=== PATIENT | female | born 1975 | race Caucasian/White ===

== ENCOUNTER → 2016-09-20 | Outpatient (CLI) | payer BC ==
--- NOTE | 2016-09-23 10:59 | MM ---
Reason for exam: screening (asymptomatic). Last mammogram was performed 1 year ago. History: Family history of breast cancer in mother at age 50 and breast cancer in paternal cousin at age 30. Took hormonal contraceptives for 10 years. Physical Findings: A clinical breast exam by your physician is recommended on an annual basis and results should be correlated with mammographic findings. MG 3D Screening Mammo W/Cad Bilateral CC and MLO view(s) were taken. Prior study comparison: September 13, 2015, bilateral MG 3d screening mammo w/cad. May 20, 2014, right breast MG work up mamm w CAD RT. May 16, 2014, bilateral MG screening mammo w CAD. The breast tissue is heterogeneously dense. This may lower the sensitivity of mammography. There is no discrete abnormality. ASSESSMENT: Incomplete: need additional imaging evaluation, BI-RAD 0 RECOMMENDATION: Ultrasound of the left breast. (palpable by patient, dense tissue) [facility] will attempt to contact patient to return for ultrasound.
== END | disposition home or self-care (01) ==
LOC: RADMAMWWP 14:33
PROVIDERS: ATTEND Obstetrics & Gynecology
DX: Z12.31 Encounter for screening mammogram for malignant neoplasm of breast (principal)
CPT/HCPCS: 77063; G0202

== ENCOUNTER → 2016-10-02 | Outpatient (CLI) | payer BC ==
--- NOTE | 2016-10-02 08:55 | USB ---
Reason for exam: additional evaluation requested from abnormal screening. History: Family history of breast cancer in mother at age 50 and breast cancer in paternal cousin at age 30. Took hormonal contraceptives for 10 years. Physical Findings: Nurse did not find any significant physical abnormalities on exam. US Breast Workup LT Left breast ultrasound includes all four quadrants, the retroareolar region and axilla. Finding demonstrates no cystic or solid lesion seen. Dense breast tissue. These results were verbally communicated with the patient and result sheet given to the patient on 10/02/16. ASSESSMENT: Negative, BI-RAD 1 RECOMMENDATION: Return to routine screening mammogram schedule for both breasts.
== END | disposition home or self-care (01) ==
LOC: RADUSWWP 07:46
PROVIDERS: ATTEND Obstetrics & Gynecology
DX: R92.8 Other abnormal and inconclusive findings on diagnostic imaging of breast (principal)

== ENCOUNTER → 2017-01-02 | Outpatient (CLI) | payer BC ==
--- NOTE | 2017-01-02 16:17 | CT ---
EXAMINATION TYPE: CT chest abdomen w con DATE OF EXAM: 01/02/2017 COMPARISON: NONE HISTORY: Abdominal pain and systemic sclerosis CT DLP: 986 mGycm. Automated Exposure Control for Dose Reduction was Utilized. CONTRAST: Oral contrast per protocol. CT scan of the thorax and abdomen is performed with IV Contrast, patient injected with 100 mL of Omni paque 300. FINDINGS: LUNGS: Right upper lobe ground glass opacity measures 4 mm on series 4 image 32. No evidence of honey combing, interseptal lobular thickening, or peripheral basilar groundglass opacities to indicate pulm onary fibrosis or interstitial lung disease in this patient with a history of systemic sclerosis. MEDIASTINUM: There are no greater than 1 cm hilar or mediastinal lymph nodes. No pericardial effusi on is seen. OTHER: No esophageal dilation, sometimes associated with systemic sclerosis. LIVER/GB: Minimal intrahepatic biliary ductal dilatation is appreciated predominating in the inferior hepatic segments. There is a tortuous course of the common bile duct measuring up to 5 mm, nonenlarg ed. PANCREAS: Pancreas is enlarged most prominent on the coronal images, however there is no abnormal enh ancement or peripancreatic fat stranding. No ductal dilation. SPLEEN: No significant abnormality is seen. ADRENALS: No significant abnormality is seen. KIDNEYS: Punctate 1 mm nonobstructing left renal calculus is noted. No evidence of hydronephrosis wit hin either kidney. BOWEL: No bowel wall thickening or bowel dilation. Incidental note is made of a duodenal diverticulum projecting in the uncinate process of the pancreas. LYMPH NODES: No greater than 1cm abdominal lymph nodes are appreciated. OSSEOUS STRUCTURES: No significant abnormality is seen. OTHER: Diastases recti is present with a small fat filled umbilical hernia with a 5.5 mm neck and sin gle calcification. IMPRESSION: 1. Pancreas appears diffusely enlarged without discrete peripancreatic fat stranding. This may simply relate to the patient's anatomy or could relate to early pancreatitis. Correlate with serum amylase and lipase. 2. No evidence of metastatic esophagus, interstitial pulmonary fibrosis, interstitial lung disease, s mall bowel wall thickening, or obstruction. Findings again be seen in systemic sclerosis. 3. Solitary groundglass pulmonary nodule measuring 4 mm. Follow-up is recommended in 3 months as this may represent atelectasis, inflammatory or infectious nodule, or much less likely early neoplastic e tiology. 4. Punctate 1 mm nonobstructing left renal calculus.
== END | disposition home or self-care (01) ==
LOC: RADCTMAIN 13:43
PROVIDERS: ATTEND Internal Medicine Rheumatology
DX: N20.0 Calculus of kidney (principal); M34.9 Systemic sclerosis, unspecified; K86.89 Other specified diseases of pancreas; R91.1 Solitary pulmonary nodule
CPT/HCPCS: 71260; 74160; Q9967

== ENCOUNTER → 2017-01-07 | Outpatient (CLI) | payer BC ==
--- NOTE | 2017-01-07 09:46 | ECHOF ---
Referral Reason:M34.9 sysctemic sclerosis MEASUREMENTS -------- HEIGHT: 134.6 cm WEIGHT: 53.5 kg BP: RVIDd: 2.3 cm (< 3.3) IVSd: 0.8 cm (0.6 - 1.1) LVIDd: 4.1 cm (3.9 - 5.3) LVPWd: 0.7 cm (0.6 - 1.1) IVSs: 1.0 cm LVIDs: 2.7 cm LVPWs: 0.9 cm LA Diam: 2.2 cm (2.7 - 3.8) LAESV Index (A-L): 19.16 ml/m Ao Diam: 2.9 cm (2.0 - 3.7) AV Cusp: 1.8 cm (1.5 - 2.6) LA Diam: 2.7 cm (2.7 - 3.8) MV EXCURSION: 13.015 mm (> 18.000) MV EF SLOPE: 76 mm/s (70 - 150) EPSS: 1.0 cm MV E Gamaliel: 0.71 m/s MV DecT: 142 ms MV A Gamaliel: 0.59 m/s MV E/A Ratio: 1.21 RAP: 5.00 mmHg RVSP: 19.91 mmHg FINDINGS -------- Sinus rhythm. This was a technically good study. LV size, wall thickness and systolic function are normal, with an EF greater than 55%. The left ventricular size is normal. The right ventricle is normal in size. Normal LA size by volume 22+/-6 ml/m2. The right atrial size is normal. The aortic valve is trileaflet, and appears structurally normal. No aortic stenosis or regurgitation. Mild mitral regurgitation is present. Mild tricuspid regurgitation present. There is no evidence of pulmonary hypertension. The right ventricular systolic pressure, as measured by Doppler, is 19.91mmHg. There is no pulmonic regurgitation present. The aortic root size is normal. There is no pericardial effusion. CONCLUSIONS -------- 1. LV size, wall thickness and systolic function are normal, with an EF greater than 55%. 2. The aortic root size is normal. 3. There is no pericardial effusion. 4. The left ventricular size is normal. 5. Normal LA size by volume 22+/-6 ml/m2. 6. The aortic valve is trileaflet, and appears structurally normal. No aortic stenosis or regurgitation. 7. Mild mitral regurgitation is present. 8. Mild tricuspid regurgitation present. 9. There is no evidence of pulmonary hypertension. 10. The right ventricular systolic pressure, as measured by Doppler, is 19.91mmHg. 11. There is no pulmonic regurgitation present. CUT OFF SAWYER: Medina Spangler RDCS
== END | disposition home or self-care (01) ==
LOC: RADECHMAIN 08:32
PROVIDERS: ATTEND Internal Medicine Rheumatology
DX: I08.1 Rheumatic disorders of both mitral and tricuspid valves (principal); M34.9 Systemic sclerosis, unspecified
CPT/HCPCS: 93306; 94060; 94726; 94729

== ENCOUNTER → 2017-04-09 | Outpatient (CLI) | payer BC ==
--- NOTE | 2017-04-09 13:55 | CT ---
EXAMINATION TYPE: CT chest wo con DATE OF EXAM: 04/09/2017 COMPARISON: 01/02/2017 HISTORY: Solitary lung nodule CT DLP: 118.2 mGycm, Automated exposure control for dose reduction was used. CONTRAST: Performed injected with 0 mL of Omnipaque 300. TECHNIQUE: Axial images were obtained at 5 mm thick sections. Reconstructed images are reviewed on [employer] computer in the coronal plane. FINDINGS: Minimal inferior portion of the thyroid visualized is normal. No suspicious lung nodules or focal infiltrates are present.. Right middle lobe nodular density is no t identified on the current examination. No enlarged mediastinal or hilar adenopathy is evident. The ascending aorta diameter at the level o f the main pulmonary artery is 3.0 cm. The main pulmonary artery diameter at the bifurcation is 2.[address] sections are obtained through the upper abdomen. There is a 0.[address] one at the inferior pole left kidney. Some mild right hydronephrosis may be present. IMPRESSIONS: 1. CT of the chest appears within normal limits. 2. Minimal right hydronephrosis of uncertain etiology.
== END | disposition home or self-care (01) ==
LOC: RADCTMAIN 13:06
PROVIDERS: ATTEND Family Medicine
DX: R91.1 Solitary pulmonary nodule (principal)
CPT/HCPCS: 71250

== ENCOUNTER → 2017-07-22 | Outpatient (CLI) | payer BC ==
--- NOTE | 2017-07-22 08:57 | CT ---
EXAMINATION TYPE: CT chest wo con DATE OF EXAM: 07/22/2017 COMPARISON: 04/09/2017 and 2016 HISTORY: Patient has no complaints at time of service. Follow up study for known pulmonary nodule. CT DLP: 432 mGycm. Automated Exposure Control for Dose Reduction was Utilized. TECHNIQUE: CT scan of the thorax is performed without IV contrast. FINDINGS: LUNGS: The lungs are grossly clear, there is no concerning parenchymal mass or nodule identified. T here is no pleural effusion or pneumothorax seen. The tracheobronchial tree is patent. MEDIASTINUM: Lack of IV contrast is noted to limit evaluation for mediastinal and especially hilar ad enopathy. There are no definitive greater than 1 cm hilar or mediastinal lymph nodes. No cardiomega ly or pericardial effusion is seen. OTHER: No additional significant abnormality is seen. IMPRESSION: The previously seen groundglass 4 mm right upper lobe density/nodule has resolved in the interim and may have been of infectious or inflammatory etiology or related to atelectasis. No pulmon shazia nodules are identified on today's examination or the prior of 04/09/2017. No further follow-up is n ecessary.
== END | disposition home or self-care (01) ==
LOC: RADCTMAIN 08:31
PROVIDERS: ATTEND Family Medicine
DX: R91.1 Solitary pulmonary nodule (principal)
CPT/HCPCS: 71250

== ENCOUNTER → 2017-10-21 | Outpatient (CLI) | payer BC ==
--- NOTE | 2017-10-22 12:39 | MM ---
Reason for exam: screening (asymptomatic). Last mammogram was performed 1 year and 1 month ago. History: Family history of breast cancer in mother at age 50 and breast cancer in paternal cousin at age 30. Took hormonal contraceptives for 10 years. Physical Findings: A clinical breast exam by your physician is recommended on an annual basis and results should be correlated with mammographic findings. MG 3D Screening Mammo W/Cad Bilateral CC and MLO view(s) were taken. Prior study comparison: September 20, 2016, bilateral MG 3d screening mammo w/cad. September 13, 2015, bilateral MG 3d screening mammo w/cad. The breast tissue is extremely dense which could obscure a lesion on mammography. There is chronic nodularity bilaterally. There is no dominant lesion. No significant changes when compared with prior studies. ASSESSMENT: Benign, BI-RAD 2 RECOMMENDATION: Routine screening mammogram of both breasts in 1 year.
== END | disposition home or self-care (01) ==
LOC: RADMAMWWP 13:04
PROVIDERS: ATTEND Obstetrics & Gynecology
DX: Z12.31 Encounter for screening mammogram for malignant neoplasm of breast (principal)
CPT/HCPCS: 77063; 77067

== ENCOUNTER → 2019-01-05 | Outpatient (CLI) | payer BC ==
--- NOTE | 2019-01-06 11:35 | MM ---
Reason for exam: screening (asymptomatic). Last mammogram was performed 1 year and 2 months ago. History: Family history of breast cancer in mother at age 50 and breast cancer in paternal cousin at age 30. Took hormonal contraceptives for 18 years. Physical Findings: A clinical breast exam by your physician is recommended on an annual basis and results should be correlated with mammographic findings. MG 3D Screening Mammo W/Cad Bilateral CC, MLO, and XCCL view(s) were taken. Prior study comparison: October 21, 2017, bilateral MG 3d screening mammo w/cad. September 20, 2016, bilateral MG 3d screening mammo w/cad. The breast tissue is heterogeneously dense. This may lower the sensitivity of mammography. There is no discrete abnormality. ASSESSMENT: Negative, BI-RAD 1 RECOMMENDATION: Routine screening mammogram of both breasts in 1 year.
== END | disposition home or self-care (01) ==
LOC: RADMAMWWP 09:12
PROVIDERS: ATTEND Obstetrics & Gynecology
DX: Z12.31 Encounter for screening mammogram for malignant neoplasm of breast (principal)
CPT/HCPCS: 77063; 77067

== ENCOUNTER → 2019-11-19 | Outpatient (CLI) | payer BC ==
--- NOTE | 2019-11-19 10:30 | MR ---
EXAMINATION TYPE: MR brain/cspine wo/w DATE OF EXAM: 11/19/2019 COMPARISON: 09/30/2018, 10/30/2007 HISTORY: Yearly f/u, Dizziness, Headaches, Rt side weakness, MS TECHNIQUE: Multiplanar, multisequence images of the brain and brainstem is performed without and with IV contras t, utilizing 6 mL intravenous Gadavist . FINDINGS: Diffusion weighted images demonstrate no evidence of a recent infarct or other diffusion ab normality. Ventricular system is midline. Midline structures demonstrate normal morphology. The cran iocervical junction appears within normal limits. Post contrast images demonstrate no abnormal enhan cement. The dural venous sinuses appear patent. The visualized sinuses are clear and the globes are i ntact. WHITE MATTER: There are approximately 8 areas of abnormal signal. Largest measures approximately 1 mm No enhancing lesions. No callosal lesions IMPRESSION: 1. Stable minimal nonspecific white matter changes can be seen with hypertension, migraine headaches, demyelinating disease or remote microvascular ischemia. 2. No new lesions or enhancing EXAMINATION TYPE: MR brain/cspine wo/w DATE OF EXAM: 11/19/2019 COMPARISON: NONE HISTORY: Yearly f/u, Dizziness, Headaches, Rt side weakness, MS TECHNIQUE: T1 sagittal and coronal, T2 sagittal, and gradient echo axial views of the cervical spine are submitted. FINDINGS: The cranial cervical junction is preserved. There is no abnormal signal seen within the sp inal cord or paraspinal soft tissues. At C2-3 there is no disc herniation or canal stenosis. No foraminal encroachment. At C3-4 there is no disc herniation or canal stenosis. No foraminal encroachment. At C4-5 there is stable left paracentral disc bulging with mild effacement of thecal sac. Neural fora morris remain patent. No Canal stenosis mild disc desiccation. At C5-6 there is mild degenerative disc disease with broad-based central disc bulging but no canal st enosis or focal herniation. Neural foramina remain patent. Vertebral body hemangioma C6. Mild uncover tebral joint hypertrophy. At C6-7 there is no disc herniation or canal stenosis. No foraminal encroachment. At C7-T1 there is no disc herniation or canal stenosis. No foraminal encroachment. IMPRESSION: 1. Stable disc bulging and mild degenerative disc disease C4-5 and C5-C6. No canal stenosis or jarad inal encroachment.
== END | disposition home or self-care (01) ==
LOC: RADMRIMAIN 08:47
PROVIDERS: ATTEND Psychiatry & Neurology Neurology
DX: M50.321 Other cervical disc degeneration at C4-C5 level (principal); M50.221 Other cervical disc displacement at C4-C5 level; G35 Multiple sclerosis
CPT/HCPCS: 70553; 72156; A9585

== ENCOUNTER → 2020-02-15 | Outpatient (CLI) | payer BC ==
--- NOTE | 2020-02-17 10:36 | MM ---
Reason for exam: screening (asymptomatic). Last mammogram was performed 1 year and 1 month ago. History: Family history of breast cancer in mother at age 50 and breast cancer in paternal cousin at age 30. Took hormonal contraceptives for 18 years. Physical Findings: A clinical breast exam by your physician is recommended on an annual basis and results should be correlated with mammographic findings. MG 3D Screening Mammo W/Cad Bilateral CC and MLO view(s) were taken. Prior study comparison: January 05, 2019, bilateral MG 3d screening mammo w/cad. October 21, 2017, bilateral MG 3d screening mammo w/cad. The breast tissue is heterogeneously dense. This may lower the sensitivity of mammography. There is no discrete abnormality. ASSESSMENT: Negative, BI-RAD 1 RECOMMENDATION: Routine screening mammogram of both breasts in 1 year.
== END | disposition home or self-care (01) ==
LOC: RADMAMWWP 16:03
PROVIDERS: ATTEND Obstetrics & Gynecology
DX: Z12.31 Encounter for screening mammogram for malignant neoplasm of breast (principal); Z80.3 Family history of malignant neoplasm of breast
CPT/HCPCS: 77063; 77067

== ENCOUNTER → 2020-02-29 | Day surgery (SDC) | payer BC, OTHER ==
[2020-02-24 14:05] VITALS: BMI 23.0
[~2020-02-29] MED LIST: LACTATED RINGERS 1,000 ML IV SCH; LIDOCAINE 1% (10MG/ML) FOR IV START INTRADERMA PRN; LIDOCAINE 1% INJ 10MG/ML (20 ML MDV) ONE; PROPOFOL 10 MG/ML 20 ML VIAL IV ONE
[2020-02-29 07:19] VITALS: TEMP 97.8
--- NOTE | 2020-02-29 08:02 | P.PCN ---
Date of Procedure: 02/29/20 Description of Procedure: BRIEF HISTORY: Patient is a 44-year-old female presenting for outpatient esophagogastroduodenoscopy for evaluation of GERD. The patient currently on omeprazole therapy. She reports that symptoms of reflux fairly well controlled. She does report dysphagia predominantly to soft foods, she feels this may be related to saliva production . She does report a history ofPROCEDURE PERFORMED: Esophagogastroduodenoscopy with biopsy. PREOPERATIVE DIAGNOSIS: GERD, esophageal dysphagia. ESTIMATED BLOOD LOSS: Minimal. IV sedation per anesthesia. PROCEDURE: After informed consent was obtained, the patient was brought into the endoscopy unit. IV sedation was administered by Anesthesia under continuous monitoring. Initially the Olympus GIF-190 video endoscope was inserted into the mouth. Esophagus intubated without any difficulty. It was gradually advanced into the stomach and duodenum and carefully examined. The bulb and the second part of the duodenum appeared normal, with biopsies taken. The scope at this time was withdrawn to the stomach, adequately insufflated with air, and upon careful examination, mucosa of the antrum, body, cardia and the fundus appeared normal, except for some mild punctate erythema suggestive of mild gastritis with biopsies taken. The scope was then withdrawn into the esophagus. The GE junction was located at 36 cm from the incisors and biopsied. The esophagus appeared normal, with biopsies taken of the midesophagus. There were no erosions or ulcerations seen and the patient tolerated the procedure well. IMPRESSION: 1. Mild gastritis. 2. Biopsies of the GE junction, antrum and body, duodenum and midesophagus. RECOMMENDATIONS: The findings of this examination were discussed with the patient. Okay to resume diet. Okay to resume medications. Await pathology from biopsies. Continue current medical management.
[2020-02-29 08:04] VITALS: PULSE 79
[2020-02-29 08:34] VITALS: BP 100/70; RESP 16
== END ==
LOC: ORWHC2ENDO 06:41
PROVIDERS: ATTEND Internal Medicine
DX: K29.50 Unspecified chronic gastritis without bleeding (principal); K21.9 Gastro-esophageal reflux disease without esophagitis; Z88.0 Allergy status to penicillin; Z79.3 Long term (current) use of hormonal contraceptives; Z79.899 Other long term (current) drug therapy; Z98.51 Tubal ligation status
CPT/HCPCS: 81025; 88305; 43239; J2001; J2704

== ENCOUNTER → 2020-08-11 | Outpatient (CLI) | payer BC, OTHER ==
--- NOTE | 2020-08-11 09:47 | US ---
EXAMINATION TYPE: US thyroid st tissue head/neck DATE OF EXAM: 08/11/2020 COMPARISON: US 2015 CLINICAL HISTORY: E04.1 SINGLE THYROID NODULE. GLAND SIZE: Right Lobe: 4.1 x 1.5 x 1.1 cm Overall Parenchyma: homogenous Left Lobe: 3.7 x 1.0 x 1.2 cm Overall Parenchyma: homogeneous Isthmus Thickness: 0.3 cm NODULES RIGHT: # of nodules measured on right: 1 1. 0.6 X 0.3 x 0.5 cm, mid mid, solid or almost completely solid, hypoechoic nodule, which is wider than tall, with smooth margins, without echogenic foci. Prior size: 0.5 x 0.5 x 0.4 cm LEFT: # of nodules measured on left: 0 ISTHMUS: # of nodules measured in the isthmus: 0 Bilateral neck scanned, no evidence of lymphadenopathy. There are bilateral subcentimeter cystic areas. Persistent small bilateral thyroid nodules and stable 5 mm solid nodule right thyroid lobe midpole level IMPRESSION: As above. No new or enlarging solid nodules noted.
== END | disposition home or self-care (01) ==
LOC: RADUSWWP 09:17
PROVIDERS: ATTEND Family Medicine
DX: E04.2 Nontoxic multinodular goiter (principal)
CPT/HCPCS: 76536

== ENCOUNTER → 2020-11-28 | Outpatient (CLI) | payer BC, OTHER ==
--- NOTE | 2020-11-28 12:45 | CT ---
EXAMINATION TYPE: CT soft tissue neck w con DATE OF EXAM: 11/28/2020 COMPARISON: None HISTORY: sore throat, difficulty swallowing CT DLP: 340 mGycm CONTRAST: CT scan of the neck is performed with IV Contrast, patient injected with 100 mL of Isovue 370. Contrast enhanced CT of the neck was performed from the skull base through the lung apices. AIRWAY: The supraglottic, glottic, and subglottic portions of the airway appear patent and free of mass. SALIVARY GLANDS: The submandibular and parotid glands are free of mass or inflammatory process. THYROID GLAND: No nodules or masses seen. LYMPH NODES: No adenopathy seen greater than 1cm. LUNG APICES: No nodule or mass is seen. OTHER: Vascular structures are patent. No significant degenerative change of the cervical spine. N o abscess seen. IMPRESSION: No distinct abnormality seen.
== END | disposition home or self-care (01) ==
LOC: RADCTMAIN 11:58
PROVIDERS: ATTEND Family Medicine
DX: E04.1 Nontoxic single thyroid nodule (principal)
CPT/HCPCS: 70491; Q9967

== ENCOUNTER → 2021-01-22 | Outpatient (CLI) | payer BC, OTHER ==
--- NOTE | 2021-01-23 04:27 | MR ---
EXAMINATION TYPE: MR brain/cspine wo/w DATE OF EXAM: 01/22/2021 COMPARISON: 11/19/2019 HISTORY: MS CONTRAST: Standard multiplanar, multisequence MRI departmental protocol utilizing 6 mL intravenous Gadavist josh olinium contrast. Multiplanar multiecho imaging of the brain and cervical spine without and with IV contrast. FINDINGS: Ventricles have fairly normal size. There is no mass effect nor midline shift. There is no evidence o f intracranial hemorrhage. On the T2 and FLAIR images there are scattered white matter high signal foci in both cerebral hemisph eres. No involvement of the cerebellum. Total number of lesions is approximately 10 and the largest i s measuring 5 mm in the left posterior frontal lobe and 5 mm in the right frontal lobe white matter. Most of the lesions are less than 3 mm. No significant temporal lobe involvement. Corpus callosum is intact. Sella turcica appears normal. There is no evidence of orbital mass. There is no significant pathologic enhancement. There is normal enhancement of the venous sinuses. Cervical vertebra have normal alignment. Disc spaces are fairly normal. There is minimal posterior di sc bulging at C4-5 and C5-6. There is no spinal stenosis. There is developmentally adequate spinal ca nal. Cervical spinal cord has fairly normal signal pattern. There is no edema. No sign of cervical de myelinating disease. There is no pathologic enhancement of the cervical spinal cord. IMPRESSION: Negative MR scan of the cervical spine. No evidence of demyelinating disease. Mild posterior disc bul ging at C4-5 and C5-6. No change. Scattered white matter high signal foci as above that are predominantly in the frontal and anterior p arietal lobes which could relate to demyelinating disease. Also consider microvascular ischemia. I do not see an adverse change compared to Old exam one year ago.
== END | disposition home or self-care (01) ==
LOC: RADMRIMAIN 14:01
PROVIDERS: ATTEND Psychiatry & Neurology Neurology
DX: G35 Multiple sclerosis (principal); M50.222 Other cervical disc displacement at C5-C6 level
CPT/HCPCS: 70553; 72156; A9585

== ENCOUNTER → 2021-01-29 | Outpatient (CLI) | payer BC, OTHER ==
--- NOTE | 2021-01-30 04:50 | MR ---
EXAMINATION TYPE: MR thoracic spine wo/w con DATE OF EXAM: 01/29/2021 COMPARISON: NONE HISTORY: 45-year-old female Bilateral leg weakness, numbness. History MS. Technique: Multiplanar, multisequence images of the thoracic spine were obtained before and after adm inistration of 6 mL intravenous Gadavist gadolinium contrast. Additional demyelinating disease seque nce with sagittal PD sequence. FINDINGS: Vertebral body heights are preserved and alignment is maintained. Very mild intervertebral disc desiccation cervicothoracic junction and upper cervical spine. No focal disc herniation or significant spinal canal stenosis. Normal course, caliber, signal intensity of the thoracic spinal cord. No abnormal enhancement within the spinal canal. Towards the left within the T11 vertebral body, a fatty matrix hemangioma is noted. No suspicious bone marrow replacement. Mild facet arthropathy upper thoracic spine. No significant bony neural foraminal narrowing identified. Conus medullaris is normal. IMPRESSION: 1. Very mild early degenerative disc desiccation and mild facet arthropathy in the upper thoracic spi ne. No focal disc herniation or significant spinal canal stenosis. No significant neuroforaminal sten osis. 2. No evidence for demyelinating disease within the thoracic spinal cord.
== END | disposition home or self-care (01) ==
LOC: RADMRIMAIN 14:47
PROVIDERS: ATTEND Psychiatry & Neurology Neurology
DX: M47.814 Spondylosis without myelopathy or radiculopathy, thoracic region (principal)
CPT/HCPCS: 72157; A9585

== ENCOUNTER → 2021-03-15 | Outpatient (CLI) | payer BC, OTHER ==
--- NOTE | 2021-03-19 10:39 | MM ---
Reason for exam: screening (asymptomatic). Last mammogram was performed 1 year and 1 month ago. History: Family history of breast cancer in mother at age 50 and breast cancer in paternal cousin at age 30. Took hormonal contraceptives for 18 years. Physical Findings: A clinical breast exam by your physician is recommended on an annual basis and results should be correlated with mammographic findings. MG 3D Screening Mammo W/Cad Bilateral CC and MLO view(s) were taken. Prior study comparison: February 15, 2020, bilateral MG 3d screening mammo w/cad. January 05, 2019, bilateral MG 3d screening mammo w/cad. The breast tissue is heterogeneously dense. This may lower the sensitivity of mammography. No significant changes when compared with prior studies. ASSESSMENT: Benign, BI-RAD 2 RECOMMENDATION: Routine screening mammogram of both breasts in 1 year.
== END | disposition home or self-care (01) ==
LOC: RADMAMWWP 12:49
PROVIDERS: ATTEND Obstetrics & Gynecology
DX: Z12.31 Encounter for screening mammogram for malignant neoplasm of breast (principal); Z80.3 Family history of malignant neoplasm of breast
CPT/HCPCS: 77063; 77067

== ENCOUNTER → 2021-09-07 | Outpatient (CLI) | payer BC, OTHER ==
--- NOTE | 2021-09-07 14:16 | US ---
EXAMINATION TYPE: US pelvis complete transvag DATE OF EXAM: 09/07/2021 COMPARISON: NONE CLINICAL HISTORY: R102 PELVIC AND PERINEAL PAIN. Irregular menses. TECHNIQUE: Transvaginal (TV) and Transabdominal (TA) . Transabdominal sonographic images of the pel vis were acquired. Transvaginal sonographic images were medically necessary to better assess the fol lowing anatomy: ovaries, endometrium Date of LMP: 09/04/2021, EXAM MEASUREMENTS: Uterus: 7.4 x 4.6 x 3.0 cm Endometrial Stripe: 0.3 cm 1. Uterus: Anteverted Heterogenous, peripheral vascuarity 2. Endometrium: wnl 3. Right Ovary: Obscured by overlying bowel gas 4. Left Ovary: Obscured by overlying bowel gas 5. Bilateral Adnexa: Prominent vessels in left adnexa 6. Posterior cul-de-sac: no free fluid IMPRESSION: 1. Unremarkable pelvic ultrasound.
--- NOTE | 2021-09-07 14:16 | US ---
EXAMINATION TYPE: US abdomen complete DATE OF EXAM: 09/07/2021 COMPARISON: NONE CLINICAL HISTORY: R109 ABD PAIN. Back pain. EXAM MEASUREMENTS: Liver Length: 16.0 cm Gallbladder Wall: 0.2 cm CBD: 0.4 cm Spleen: 9.3 cm Right Kidney: 10.2 x 4.0 x 3.2 cm Left Kidney: 9.5 x 4.9 x 5.2 cm Pancreas: wnl Liver: wnl Gallbladder: wnl Evidence for sonographic Cyr's sign: neg CBD: wnl Spleen: wnl Right Kidney: No hydronephrosis or masses seen Left Kidney: No hydronephrosis or masses seen Upper IVC: wnl Abd Aorta: No AAA visualized IMPRESSION: 1. Normal abdomen ultrasound
== END | disposition home or self-care (01) ==
LOC: RADUSWWP 13:06
PROVIDERS: ATTEND Family Medicine
DX: N92.6 Irregular menstruation, unspecified (principal); R10.9 Unspecified abdominal pain
CPT/HCPCS: 76700; 76830; 76856

== ENCOUNTER → 2022-03-18 | Outpatient (CLI) | payer BC ==
--- NOTE | 2022-03-19 15:18 | MM ---
Reason for Exam: Screening (asymptomatic). Last screening mammogram was performed 12 month(s) ago. Patient History: Menarche at age 10. First Full-Term at age 22. Currently using Hormonal Contraceptives, beginning at age 14 for 18 years. Paternal cousin had breast cancer, age 30. Mother had breast cancer, age 50. Last menstrual period: 02/18/2022 Risk Values: Eve 5 year model risk: 1.8%. NCI Lifetime model risk: 16.7%. Prior Study Comparison: 01/05/2019 Bilateral Screening Mammogram, [facility]. 02/15/2020 Bilateral Screening Mammogram, [facility]. 03/15/2021 Bilateral Screening Mammogram, [facility]. Tissue Density: The breast tissue is heterogeneously dense. This may lower the sensitivity of mammography. Findings: Analyzed By CAD. There is no suspicious new group of microcalcifications or new suspicious mass in either breast. Overall Assessment: Negative, BI-RAD 1 Management: Screening Mammogram of both breasts in 1 year. Some advise bilateral breast ultrasound surveillance in patients with background dense tissue. A clinical breast exam by your physician is recommended on an annual basis and results should be correlated with mammographic findings. Electronically signed and approved by: Israel Kitchen M.D.
== END | disposition home or self-care (01) ==
LOC: RADMAMWWP 14:59
PROVIDERS: ATTEND Obstetrics & Gynecology
DX: Z12.31 Encounter for screening mammogram for malignant neoplasm of breast (principal); Z80.3 Family history of malignant neoplasm of breast
CPT/HCPCS: 77063; 77067

== ENCOUNTER → 2023-03-19 | Outpatient (CLI) | payer BC ==
--- NOTE | 2023-03-20 08:26 | MM ---
Reason for Exam: Screening (asymptomatic). Last screening mammogram was performed 12 month(s) ago. Patient History: Menarche at age 10. First Full-Term at age 22. Perimenopausal. Currently using Hormonal Contraceptives, beginning at age 14 for 18 years. Paternal cousin had breast cancer, age 30. Mother had breast cancer, age 50. Last menstrual period: 01/05/2023 Risk Values: Eve 5 year model risk: 1.8%. NCI Lifetime model risk: 16.4%. Prior Study Comparison: 02/15/2020 Bilateral Screening Mammogram, [facility]. 03/15/2021 Bilateral Screening Mammogram, [facility]. 03/18/2022 Bilateral MG 3D screening mammo w/cad, [facility]. Tissue Density: The breast tissue is heterogeneously dense. This may lower the sensitivity of mammography. Findings: Analyzed By CAD. There is no suspicious group of microcalcifications or new suspicious mass in either breast. Overall Assessment: Benign, BI-RAD 2 Management: Screening Mammogram of both breasts in 1 year. . Patient should continue monthly self-breast exams. A clinical breast exam by your physician is recommended on an annual basis. This exam should not preclude additional follow-up of suspicious palpable abnormalities. Note on Eve scores and lifetime risk: 1. A Eve score greater than 3% is considered moderate risk. If this is the case, consider specialist referral to assess eligibility for a risk reducing agent. 2. If overall lifetime risk for the development of breast cancer is 20% or higher, the patient may qualify for future screening with alternating mammogram and breast MRI. Electronically signed and approved by: Mark Martínez M.D. Radiologis
== END | disposition home or self-care (01) ==
LOC: RADMAMWWP 12:59
PROVIDERS: ATTEND Obstetrics & Gynecology
DX: Z12.31 Encounter for screening mammogram for malignant neoplasm of breast (principal); Z80.3 Family history of malignant neoplasm of breast
CPT/HCPCS: 77063; 77067

== ENCOUNTER → 2023-03-26 | Outpatient (CLI) | payer BC ==
--- NOTE | 2023-03-31 11:29 | MR ---
EXAMINATION TYPE: MR thoracic spine wo/w con DATE OF EXAM: 03/26/2023 COMPARISON: HISTORY: MS, Right leg weakness, Pt has fallen CONTRAST: Performed utilizing 6.5 mL intravenous Gadavist gadolinium contrast. TECHNIQUE: Multiplanar, multiecho imaging on a 3.0 Wendy magnet is performed through the thoracic spi ne. Spinal cord maintains normal signal through its visualized course. No suspicious white matter plaques within the thoracic spinal cord are identified. No abnormal enhancement is evident. Vertebral body alignment is normal. Vertebral body heights are preserved. Disc heights are preserved. Disc hydration levels are preserved. No spinal canal stenosis is evident. IMPRESSION: 1. No suspicious changes to suggest multiple sclerosis plaques within the thoracic spinal cord.
== END | disposition home or self-care (01) ==
LOC: RADMRIMAIN 13:17
PROVIDERS: ATTEND Psychiatry & Neurology Neurology
DX: G35 Multiple sclerosis (principal)
CPT/HCPCS: 72157; A9585

== ENCOUNTER → 2023-04-01 | Outpatient (CLI) | payer BC ==
--- NOTE | 2023-04-01 20:29 | MR ---
EXAMINATION TYPE: MR brain/cspine wo/w DATE OF EXAM: 04/01/2023 9:23 AM CLINICAL INDICATION:Female, 48 years old with history of G35 MS;, MS follow-up, no new symptoms. COMPARISON: 01/22/2021. TECHNIQUE: Multi planar, multi sequence imaging was performed through the brain including: T1, T2, Inversion rec overy, Diffusion weighted imaging, and gradient echo imaging. No gadolinium was given. Multi planar, multi sequence imaging was performed utilizing: T1-weighted, T2-weighted, and turbo inv ersion recovery imaging of the cervical spine. IV Contrast: 6.5 cc Gadavist FINDINGS: No evidence for restricted diffusion or postcontrast enhancement to suggest active demyelin ation. There is scattered white matter changes some of which are new while others are increased in si ze. Given differences in slice selection on prior exam compared to this exam. Example of a increased size lesion is a frontal lobe 5 mm lesion ultimately 3 mm in prior series 1601 image 105. No lesion i n the a more inferior aspect measuring 6 mm mm, previously 5 mm series 1601 image 116, while others a re similar right callosum body measuring 3 mm, previously 3 mm. And at least one may not been present on prior a series 1601 image 216 measuring 3 mm. The cain-white junctions, ventricular system, and cisterns appear unremarkable. Midline structures sh ow no abnormality. Diffusion-weighted imaging shows no evidence of restricted diffusion. The suscepti bility weighted images do not reveal any evidence for micro-hemorrhage. The bone marrow signal is within normal limits. Paranasal sinuses and mastoid air cells: No significant paranasal sinus disease. Visualized orbits: Orbital contents are intact. Alignment: The cervical vertebral bodies have preserved heights. Alignment is within normal limits gi shaheed patient positioning. Bones: Bone signal is within normal limits. No abnormal bone marrow edema on inversion recovery seque nces. Cord: The spinal cord is unremarkable with regards to their signal intensity and morphology. No abnor mal postcontrast enhancement. Discs: Intervertebral disc signal is maintained. C2-C3: No significant disc pathology. The spinal canal is patent. No neural foraminal stenosis. C3-C4: No significant disc pathology. The spinal canal is patent. No neural foraminal stenosis. C4-C5: No significant disc pathology. The spinal canal is patent. No neural foraminal stenosis. C5-C6: No significant disc pathology. The spinal canal is patent. Bilateral facet and uncovertebral joint arthropathy are present with mild bilateral neural foraminal stenosis. C6-C7: No significant disc pathology. The spinal canal is patent. No neural foraminal stenosis. C7-T1: No significant disc pathology. The spinal canal is patent. No neural foraminal stenosis. Other: None. IMPRESSION: 1. No evidence of active demyelination. Scattered white matter changes which are minimally increased compared to 01/22/2021 examination. 2. No abnormal cord signal in this cervical spine. 3. No evidence for disc herniation or significant spinal canal stenosis. 4. Minimal disc degeneration with associated osteoarthritic changes.
== END | disposition home or self-care (01) ==
LOC: RADMRIMAIN 08:11
PROVIDERS: ATTEND Psychiatry & Neurology Neurology
DX: G35 Multiple sclerosis (principal); M50.30 Other cervical disc degeneration, unspecified cervical region; M47.812 Spondylosis without myelopathy or radiculopathy, cervical region
CPT/HCPCS: 70553; 72156; A9585

== ENCOUNTER → 2024-03-22 | Outpatient (CLI) | payer BC ==
--- NOTE | 2024-03-23 15:10 | MM ---
Reason for Exam: Screening (asymptomatic). Last screening mammogram was performed 12 month(s) ago. Patient History: Menarche at age 10. First Full-Term at age 22. Perimenopausal. Hormonal Contraceptives, starting at age 14 for 18 years. Paternal cousin had breast cancer, age 30. Mother had breast cancer, age 50. Risk Values: Eve 5 year model risk: 1.9%. NCI Lifetime model risk: 16.2%. Prior Study Comparison: 03/15/2021 Bilateral Screening Mammogram, [facility]. 03/18/2022 Bilateral MG 3D screening mammo w/cad, [facility]. 03/19/2023 Bilateral MG 3D screening mammo w/cad, [facility]. Tissue Density: The breasts are heterogeneously dense, which may obscure small masses. Findings: Analyzed By CAD. There is no suspicious group of microcalcifications or new suspicious mass in either breast. Overall Assessment: Benign, BI-RAD 2 Management: Screening Mammogram of both breasts in 1 year. . Patient should continue monthly self-breast exams. A clinical breast exam by your physician is recommended on an annual basis. This exam should not preclude additional follow-up of suspicious palpable abnormalities. Note on Eve scores and lifetime risk: 1. A Eve score greater than 3% is considered moderate risk. If this is the case, consider specialist referral to assess eligibility for a risk reducing agent. 2. If overall lifetime risk for the development of breast cancer is 20% or higher, the patient may qualify for future screening with alternating mammogram and breast MRI. [facility], , 03/23/2024 3:07 PM. Electronically signed and approved by: Mark Martínez M.D. Radiologis
== END | disposition home or self-care (01) ==
LOC: RADMAMWWP 13:11
PROVIDERS: ATTEND Obstetrics & Gynecology
DX: Z12.31 Encounter for screening mammogram for malignant neoplasm of breast (principal); Z80.3 Family history of malignant neoplasm of breast; R92.333 Mammographic heterogeneous density, bilateral breasts
CPT/HCPCS: 77063; 77067

== ENCOUNTER → 2024-07-27 | Outpatient (CLI) | payer BC ==
--- NOTE | 2024-07-27 11:17 | MR ---
EXAMINATION TYPE: MR brain/cspine wo/w DATE OF EXAM: 07/27/2024 9:45 AM COMPARISON: 04/01/2023.. CLINICAL INDICATION: Female, 49 years old with history of G35 Multiple sclerosis; PHH, MS, pressure b ehind left eye, sensitivity to left side of face, headaches. TECHNIQUE: Multi planar, multi sequence imaging was performed through the brain including: T1, T2, Inversion rec overy, Diffusion weighted imaging, and gradient echo imaging. No gadolinium was given. Multi planar, multi sequence imaging was performed utilizing: T1-weighted, T2-weighted, and turbo inv ersion recovery imaging of the cervical spine. IV Contrast: 5 mL Gadobutrol FINDINGS: The cain-white junctions, ventricular system, basal cisterns appear unremarkable. Scattered foci of high T2 signal intensity are seen within the periventricular white matter. Midline structures show n o abnormality. Diffusion-weighted imaging shows no evidence of restricted diffusion. The susceptibili ty weighted images do not reveal any evidence for micro-hemorrhage. The bone marrow signal is within normal limits. Paranasal sinuses and mastoid air cells: No significant paranasal sinus disease. Visualized orbits: Orbital contents are intact. Alignment: The cervical vertebral bodies have preserved heights. Alignment is within normal limits gi shaheed patient positioning. Bones: Bone signal is within normal limits. No abnormal bone marrow edema on inversion recovery seque nces. Cord: The spinal cord is unremarkable with regards to their signal intensity and morphology. No abnor mal postcontrast enhancement. Discs: Intervertebral disc signal is maintained. C2-C3: No significant disc pathology. The spinal canal is patent. No neural foraminal stenosis. C3-C4: No significant disc pathology. The spinal canal is patent. No neural foraminal stenosis. C4-C5: No significant disc pathology. The spinal canal is patent. No neural foraminal stenosis. C5-C6: No significant disc pathology. The spinal canal is patent. No neural foraminal stenosis. C6-C7: No significant disc pathology. The spinal canal is patent. No neural foraminal stenosis. C7-T1: No significant disc pathology. The spinal canal is patent. No neural foraminal stenosis. Other: None. IMPRESSION: 1. No evidence for active demyelination. Scattered white matter changes present not significantly ch anged from 04/01/2023. 2. No evidence for disc herniation or significant spinal canal stenosis. 3. No evidence of intracranial mass or acute/subacute infarct. [facility], , 07/27/2024 11:15 AM
== END | disposition home or self-care (01) ==
LOC: RADMRIMAIN 08:24
PROVIDERS: ATTEND Psychiatry & Neurology Neurology
DX: G35 Multiple sclerosis (principal)
CPT/HCPCS: 70553; 72156; A9585